=== PATIENT | female | born 1985 | race Caucasian/White ===

== ENCOUNTER 2019-01-17 09:40 | Outpatient (RCR) | payer MEDICARE, MEDICAID ==
[2019-01-08 10:19] VITALS: BP 113/91
--- NOTE | 2019-01-09 08:16 | NUR ---
01/08/19 0920 Patient in office for Nursing Assessment. pt is in a pleasant mood, alert and oriented x 4. Patients vital signs are stable. Pt's skin is warm pink and dry. Pt presents states the markings on her arms are from mosquito bites. No s/s of infection noted. Will continue to monitor. Patient states she is seeing a new PCP on 01/17/19 at 1230. patient was given a list of psychiatrists. Pt states she has not called to make an appointment yet. Will continue to follow up with pt.
--- NOTE | 2019-01-09 10:59 | NUR ---
01/05/19 Patient in today for new admission. Pt presents clean and neat, alert and oriented x 4. Pt is in a pleasant mood. Pt denies any suicidal thoughts at present time. pt will be admitted to [facility] 3x/week with 1:1 weekly. pt will follow up in one month.
[~2019-01-17] VITALS: Ht 170.2 cm; Wt 92.5 kg
[~2019-01-17 09:40] MED LIST: ABILIFY5 MG PO; CLONAZEPAM1 MG PO; LAMICTAL25 M2 PO; NAPROSYN250 MG PO; PEPCID20 MG PO; PROAIR HFA IN; SERTRALINE50 MG PO; VITAMIN B 12250 MCG PO; VITAMIN D35000 UNIT PO
[2019-02-19] MEDS ORDERED: ZOLOFT100 MG PO (09:30)
[2019-02-19] MEDS ORDERED: LAMICTAL25 M2 PO (09:31)
== END 2019-01-18 23:59 | disposition still patient (30) ==
LOC: PATHWAYS 09:40
PROVIDERS: ATTEND Specialist
DX: F60.3 Borderline personality disorder (principal); F19.10 Other psychoactive substance abuse, uncomplicated; F33.8 Other recurrent depressive disorders